=== PATIENT | female | born 1985 | race Caucasian/White ===

== ENCOUNTER → 2018-09-16 13:50 | Outpatient (CLI) | payer OTHER, SELFPAY ==
[2018-09-16 14:08] LABS: Add Manual Diff / Slide Review NO; Basophils Absolute Auto 0 /uL (0-100); Basophils Percent Auto 0.6 % (0-2); Eosinophils Absolute Auto 100 /uL (0-450); Eosinophils Percent Auto 1.1 % (2-4); Hematocrit 35.5 % (36-46); Hemoglobin 12.6 g/dL (12.0-16.0); Lymphocytes Absolute Auto 2700 /uL (1100-4500); Lymphocytes Percent Auto 33.4 % (25-40); Mean Corpuscular HGB Conc 35.4 % (30-36); Mean Corpuscular Hemoglobin 32.3 PG (26-34); Mean Corpuscular Volume 91.1 fL (80-100); Monocytes Absolute Auto 300 /uL (0-900); Monocytes Percent Auto 3.5 % (3-14); Neutrophils Absolute Auto 5000 /uL (1500-7000); Neutrophils Percent Auto 61.4 % (50-75); Platelet Count 405 X10^3/uL (150-400); White Blood Cell Count 8.1 X10^3/uL (4.5-11.0)
[2018-09-16 14:35] LABS: Alanine Aminotransferase 16 IU/L (9-52); Albumin 4.6 g/dL (3.5-5.0); Albumin Globulin Ratio 1.6 (1.0-2.8); Alkaline Phosphatase 55 U/L (38-126); Aspartate Aminotransferase 19 IU/L (14-36); BUN Creatinine Ratio 12.9 (6-22); Bilirubin Total 0.8 mg/dL (0.2-1.3); Blood Urea Nitrogen 9 mg/dL (7-17); Calcium 9.6 mg/dL (8.4-10.2); Carbon Dioxide 24 mmol/L (22-32); Chloride 105 mmol/L (98-107); Cholesterol 215 mg/dL (140-199); Estimated Glomerular Filt Rate > 60.0 mL/min (>60); Globulin 2.8 g/dL (1.7-4.1); Glucose 146 mg/dL (70-100); HDL Cholesterol 62 mg/dL (40-60); HEMOLYSIS < 15 (0-50); LDL Cholesterol Calculated 115 mg/dL (<100); Potassium 3.9 mmol/L (3.4-5.1); Sodium 139 mmol/L (137-145); Total Protein 7.4 g/dL (6.3-8.2); Triglycerides 192 mg/dL (35-150)
[2018-09-16 14:52] LABS: Free T4, Direct Thyroxine 0.85 ng/dL (0.78-2.19)
[2018-09-16 15:05] LABS: Thyroid Stimulating Hormone 0.59 uIU/mL (0.47-4.68)
== END ==
PROVIDERS: Family Provider Nurse Practitioner Gerontology; PCP Nurse Practitioner Gerontology; Visit Provider Psychiatry & Neurology Psychiatry
DX: F33.2 Major depressive disorder, recurrent severe without psychotic features (principal)
CPT/HCPCS: 36415; 80053; 80061; 84439; 84443; 85025

== ENCOUNTER 2018-11-06 14:18 | Emergency (ER) | payer OTHER, SELFPAY ==
[2018-11-06 14:35] VITALS: BP 120/78; PULSE 69; RESP 15; TEMP 37.1; O2SAT 99; BMI 27.6
[2018-11-06 15:42] LABS: INR 1.1 (0.9-1.3); Prothrombin Time 12.2 SECONDS (10.1-12.7)
[2018-11-06 15:45] LABS: PTT Partial Thromboplastin Tim 31 SECONDS (26.4-36.2)
[2018-11-06 15:46] LABS: Alanine Aminotransferase 13 IU/L (9-52); Albumin 4.7 g/dL (3.5-5.0); Albumin Globulin Ratio 1.6 (1.0-2.8); Alkaline Phosphatase 50 U/L (38-126); Aspartate Aminotransferase 22 IU/L (14-36); BUN Creatinine Ratio 14.3 (6-22); Bilirubin Total 0.6 mg/dL (0.2-1.3); Blood Urea Nitrogen 10 mg/dL (7-17); Calcium 9.3 mg/dL (8.4-10.2); Carbon Dioxide 23 mmol/L (22-32); Chloride 105 mmol/L (98-107); Estimated Glomerular Filt Rate > 60.0 mL/min (>60); Glucose 82 mg/dL (70-100); HEMOLYSIS < 15 (0-50); Lipase 78 U/L (23-300); Potassium 3.8 mmol/L (3.4-5.1); Sodium 140 mmol/L (137-145); Total Protein 7.7 g/dL (6.3-8.2)
[2018-11-06 15:51] LABS: Add Manual Diff / Slide Review NO; Basophils Absolute Auto 100 /uL (0-100); Basophils Percent Auto 0.9 % (0-2); Eosinophils Absolute Auto 100 /uL (0-450); Eosinophils Percent Auto 1.2 % (2-4); Hematocrit 35.4 % (36-46); Hemoglobin 12.7 g/dL (12.0-16.0); Lymphocytes Absolute Auto 2800 /uL (1100-4500); Mean Corpuscular HGB Conc 35.9 % (30-36); Mean Corpuscular Hemoglobin 31.6 PG (26-34); Mean Corpuscular Volume 87.9 fL (80-100); Monocytes Absolute Auto 400 /uL (0-900); Monocytes Percent Auto 5.5 % (3-14); Neutrophils Absolute Auto 4500 /uL (1500-7000); Neutrophils Percent Auto 57.4 % (50-75); Platelet Count 395 X10^3/uL (150-400); Red Blood Cell Count 4.03 X10^6/uL (4.0-5.2); Red Cell Distribution Width 12.6 % (11.6-14.8); White Blood Cell Count 7.9 X10^3/uL (4.5-11.0)
[2018-11-06 17:04] LABS: Bacteria Urine None Seen
[2018-11-06 17:06] LABS: Appearance Urine UA CLEAR; Bilirubin Urine UA NEGATIVE (NEGATIVE); Color Urine UA YELLOW; Glucose Urine UA NEGATIVE (Negative); Ketones Urine UA NEGATIVE (NEGATIVE); Leukocyte Esterase Urine UA NEGATIVE (NEGATIVE); Nitrite Urine UA NEGATIVE (Negative); Occult Blood Urine UA 3+ (Negative); Protein Urine UA NEGATIVE (Negative); Urobilinogen Urine UA 0.2 E.U./dL (0.2)
[2018-11-06 17:13] LABS: Culture Indicated Urine Cult Not Indicated; RBC Urine 1-5/HPF (0-5/HPF); Squamous Epithelial Cell Urine 0-1 /HPF (0-5/HPF); WBC Urine 0-1/HPF (0-5/HPF)
[2018-11-06] MEDS: ONDANSETRON 4 MG/2 ML INJ IV (17:41)
[2018-11-06] MEDS: HYDROMORPHONE 0.5 MG INJ IV (17:42)
[2018-11-06] MEDS: SODIUM CHLORIDE 0.9% 1,000 ML 1000 ML IV (17:42)
[2018-11-06] MEDS: PANTOPRAZOLE 40 MG VIAL IV (17:42)
--- NOTE | 2018-11-06 18:03 | ED_ITS ---
HPI - Abdominal Pain General Chief Complaint: Abdominal Pain Stated Complaint: Abd pain Time Seen by Provider: 11/06/18 16:53 Source: patient Mode of arrival: Ambulatory Limitations: no limitations History of Present Illness HPI narrative: 33-year-old female nonsmoker with history seasonal allergies and ovarian cyst presents with her and child in the chief complaint of ongoing nausea, vomiting, diarrhea, episodic crampy abdominal pain. She has been having symptoms off and on for multiple weeks. She was seen at an outside facility on Wednesday and had a very thorough workup including labs and a CT scan. She was diagnosed with mesenteric adenitis. Patient was discharged home with return precautions. Patient denies fever. And states that her symptoms are no worse but are no better and she is hoping for a 2nd opinion. She denies any exposure to ill persons, international travel, bad food, or the use of recent antibiotics. MD complaint: abdominal pain Onset (ago): week(s) Pain Consistency: intermittent Location: diffuse and RLQ Severity: moderate Quality: cramping Radiation: none Relieving factors: rest Exacerbating factors: movement Associated symptoms: nausea and diarrhea Related Data Home Medications Medication Instructions Recorded Confirmed cetirizine PO QDAY #0 03/15/17 10/11/18 etonogestrel [Nexplanon] 68 mg INTRADERMAL #0 03/15/17 10/11/18 fluticasone propionate 50 1 spray NASAL DAILY 06/28/18 10/11/18 mcg/actuation nasal spray,suspension spironolactone 50 mg tablet 50 mg PO DAILY 06/28/18 10/11/18 Previous Rx's Medication Instructions Recorded bupropion HCl 300 mg 24 hr tablet, 300 mg PO QAM #90 tab 06/28/18 extended release hydroxyzine HCl 25 mg tablet See Rx Instructions PO BEDTIME PRN 06/28/18 #180 tab lisdexamfetamine 50 mg capsule 50 mg PO DAILY #90 cap 06/28/18 vilazodone 20 mg tablet 20 mg PO DAILY #90 tab 06/28/18 Allergies Allergy/AdvReac Type Severity Reaction Status Date / Time Penicillins AdvReac Severe Hives and Unverified 09/16/18 13:04 Blisters Review of Systems Constitutional Constitutional: Denies chills, Denies fatigue, Denies fever(s), Denies frequent falls, Denies lethargy and Denies weakness Eyes Eyes: Denies change in vision, Denies eye discharge, Denies irritation and Denies loss of vision ENT Ears, Nose, Mouth, and Throat: Denies change in voice, Denies dizziness, Denies neck pain, Denies sore throat and Denies throat swelling Cardiovascular Cardiovascular: Denies chest pain, Denies irregular heart rhythm, Denies lightheadedness, Denies palpitations, Denies dyspnea, Denies dyspnea on exertion and Denies orthopnea Respiratory Respiratory: Denies cough, Denies dyspnea, Denies dyspnea on exertion and Denies wheezing Gastrointestinal Gastrointestinal: Reports abdominal pain, Denies change in bowel habits, Reports diarrhea, Reports nausea and Denies vomiting Genitourinary Genitourinary: Denies hematuria, Denies flank pain, Denies urinary incontinence and Denies urinary urgency Musculoskeletal Musculoskeletal: Denies back pain, Denies muscle weakness, Denies neck pain, Denies numbness and Denies tingling Integumentary/Breasts Skin/Breast: Denies pruritus, Denies erythema, Denies rash and Denies wounds Neurologic Neurologic: Denies behavioral changes, Denies confusion, Denies dizziness, Denies frequent falls, Denies loss of vision, Denies numbness, Denies tingling and Denies weakness Psychiatric Psychiatric: Denies anxiety, Denies behavioral changes, Denies confusion, Denies depression, Denies homicidal ideation and Denies suicidal ideation Endocrine Endocrine: Denies fatigue, Denies flushing and Denies palpitations Hematologic/Lymphatic Hematologic/Lymphatic: Denies easy bruising Allergic/Immunologic Allergic/Immunologic: Denies urticaria, Denies throat swelling and Denies wheezing PFSH Social History Smoking Status: Never smoker Social History Smoking Status: Never smoker Exam Narrative Exam Narrative: GENERAL: [33] year old patient appears stated age. Well- nourished, well-developed patient, in mild distress. HEAD: Atraumatic. Normocephalic. EYES: Pupils equal round and reactive. Extraocular motions intact. No scleral icterus. No injection or drainage. ENT: Nose without bleeding, purulent drainage. Throat without erythema, tonsillar hypertrophy or exudate. Airway patent. NECK: Trachea midline. Non tender CARDIOVASCULAR: Regular rate and rhythm without murmurs, gallops, or rubs. RESPIRATORY: Clear to auscultation. Breath sounds equal bilaterally. No wheezes, rales, or rhonchi. GASTROINTESTINAL: Abdomen soft, mild tenderness in the right lower quadrant nondistended. EXTREMITIES: No edema or joint tenderness. BACK: Nontender without deformity or crepitance. No flank tenderness. NEURO: AOx3. SKIN: No rash or erythema of visible areas Initial Vital Signs Initial Vital Signs: Vital Signs Temperature 98.7 F 11/06/18 14:35 Pulse Rate 69 11/06/18 14:35 Respiratory Rate 15 11/06/18 14:35 Blood Pressure 120/78 11/06/18 14:35 Pulse Oximetry 99 11/06/18 14:35 Course Orders Ordered: ED Orders 11/06/18 15:10 Complete Blood Count AUTO DIFF Stat Comprehensive Metabolic Panel Stat Lipase Stat Partial Thromboplastin Time Stat Prothrombin Time INR Stat 11/06/18 16:48 Urinalysis and Microscopic Stat EKG-12 Lead Stat 11/06/18 17:21 GI Panel (Film Array) Stat Sodium Chloride (Normal Saline 0.9%) 1,000 mls @ 1,000 mls/hr IV BOLUS ONE Stop: 11/06/18 18:19 Last Admin: 11/06/18 17:42 Dose: 1,000 mls/hr Documented by: XANDER Ondansetron HCl (Zofran) 4 mg IV Q4HR PRN PRN Reason: Nausea And Vomiting Last Admin: 11/06/18 17:41 Dose: 4 mg Documented by: XANDER Discontinued Medications Hydromorphone HCl (Dilaudid) 0.5 mg IV NOW ONE Stop: 11/06/18 17:21 Last Admin: 11/06/18 17:42 Dose: 0.5 mg Documented by: JASMINT Pantoprazole Sodium (Protonix) 40 mg IV NOW ONE Stop: 11/06/18 17:21 Last Admin: 11/06/18 17:42 Dose: 40 mg Documented by: JASMINT Vital Signs Vital signs: Vital Signs - 8 hr 11/06/18 14:35 Temperature 98.7 F Pulse Rate 69 Respiratory Rate 15 Blood Pressure 120/78 Pulse Oximetry 99 MDM - Abdominal Pain Lab Data Result diagrams: 11/06/18 15:10 11/06/18 15:10 Labs: Lab Results 11/06/18 11/06/1819 Range/Units 15:10 15:10 15:10 WBC 7.9 (4.5-11.0) X10^3/uL RBC 4.03 (4.0-5.2) X10^6/uL Hgb 12.7 (12.0-16.0) g/dL Hct 35.4 L (36-46) % MCV 87.9 (80-100) fL MCH 31.6 (26-34) PG MCHC 35.9 (30-36) % RDW 12.6 (11.6-14.8) % Plt Count 395 (150-400) X10^3/uL Neut % (Auto) 57.4 (50-75) % Lymph % (Auto) 35.0 (25-40) % [place] % (Auto) 5.5 (3-14) % Eos % (Auto) 1.2 L (2-4) % Baso % (Auto) 0.9 (0-2) % Neut # (Auto) 4500 (9234-2653) /uL Lymph # (Auto) 2800 (8021-1574) /uL [place] # (Auto) 400 (0-900) /uL Eos # (Auto) 100 (0-450) /uL Baso # (Auto) 100 (0-100) /uL PT 12.2 (10.1-12.7) SECONDS INR 1.1 (0.9-1.3) APTT 31 (26.4-36.2) SECONDS Sodium 140 (137-145) mmol/L Potassium 3.8 (3.4-5.1) mmol/L Chloride 105 (98-107) mmol/L Carbon Dioxide 23 (22-32) mmol/L BUN 10 (7-17) mg/dL Creatinine 0.70 (0.52-1.04) mg/dL Estimated GFR > 60.0 (>60) mL/min BUN/Creatinine Ratio 14.3 (6-22) Glucose 82 (70-100) mg/dL Calcium 9.3 (8.4-10.2) mg/dL Total Bilirubin 0.6 (0.2-1.3) mg/dL AST 22 (14-36) IU/L ALT 13 (9-52) IU/L Alkaline Phosphatase 50 (38-126) U/L Total Protein 7.7 (6.3-8.2) g/dL Albumin 4.7 (3.5-5.0) g/dL Globulin 3.0 (1.7-4.1) g/dL Albumin/Globulin Ratio 1.6 (1.0-2.8) Lipase 78 (23-300) U/L Urine Color Urine Appearance Urine pH (4.5-8.0) Ur Specific [place] (1.000-1.035) Urine Protein (Negative) Urine Glucose (UA) (Negative) g/dL Urine Ketones (NEGATIVE) Urine Occult Blood (Negative) Urine Nitrate (Negative) Urine Bilirubin (NEGATIVE) Urine Urobilinogen (0.2) E.U./dL Ur Leukocyte Esterase (NEGATIVE) Urine RBC (0-5/HPF) Urine WBC (0-5/HPF) Ur Squamous Epith Cells (0-5/HPF) Urine Bacteria (None) Ur Culture Indicated? 11/06/18 Range/Units 16:48 WBC (4.5-11.0) X10^3/uL RBC (4.0-5.2) X10^6/uL Hgb (12.0-16.0) g/dL Hct (36-46) % MCV (80-100) fL MCH (26-34) PG MCHC (30-36) % RDW (11.6-14.8) % Plt Count (150-400) X10^3/uL Neut % (Auto) (50-75) % Lymph % (Auto) (25-40) % [place] % (Auto) (3-14) % Eos % (Auto) (2-4) % Baso % (Auto) (0-2) % Neut # (Auto) (9458-8526) /uL Lymph # (Auto) (5460-1294) /uL [place] # (Auto) (0-900) /uL Eos # (Auto) (0-450) /uL Baso # (Auto) (0-100) /uL PT (10.1-12.7) SECONDS INR (0.9-1.3) APTT (26.4-36.2) SECONDS Sodium (137-145) mmol/L Potassium (3.4-5.1) mmol/L Chloride (98-107) mmol/L Carbon Dioxide (22-32) mmol/L BUN (7-17) mg/dL Creatinine (0.52-1.04) mg/dL Estimated GFR (>60) mL/min BUN/Creatinine Ratio (6-22) Glucose (70-100) mg/dL Calcium (8.4-10.2) mg/dL Total Bilirubin (0.2-1.3) mg/dL AST (14-36) IU/L ALT (9-52) IU/L Alkaline Phosphatase (38-126) U/L Total Protein (6.3-8.2) g/dL Albumin (3.5-5.0) g/dL Globulin (1.7-4.1) g/dL Albumin/Globulin Ratio (1.0-2.8) Lipase (23-300) U/L Urine Color Yellow Urine Appearance Clear Urine pH 5.0 (4.5-8.0) Ur Specific [place] 1.010 (1.000-1.035) Urine Protein Negative (Negative) Urine Glucose (UA) Negative (Negative) g/dL Urine Ketones Negative (NEGATIVE) Urine Occult Blood 3+ H (Negative) Urine Nitrate Negative (Negative) Urine Bilirubin Negative (NEGATIVE) Urine Urobilinogen 0.2 (0.2) E.U./dL Ur Leukocyte Esterase Negative (NEGATIVE) Urine RBC 1-5/hpf (0-5/HPF) Urine WBC 0-1/hpf (0-5/HPF) Ur Squamous Epith Cells 0-1 /hpf (0-5/HPF) Urine Bacteria None seen (None) Ur Culture Indicated? Cult not indicated Point of care testing: Point of Care Testing Test Results Negative Urine Dip Bedside Urine Glucose Negative Bedside Urine Bilirubin - Negative Bedside Urine Ketone - Negative Urine Specific [place] 1.015 Bedside Urine Occult Blood +++ Bedside Urine pH 5.5 Bedside Urine Protein - Negative Bedside Urine Urobilinogen - Negative Bedside Urine Nitrite - Negative Bedside Urine Leukocytes - Negative Esterase MDM Narrative Medical decision making narrative: Multiple etiologies for patient's symptoms considered including: [Year old bowel syndrome versus viral gastroenteritis versus atypical appendicitis but thought less likely given lack of findings on CT and a negative white count versus other] Patient's symptoms improved or duration of stay with above-stated therapies. Findings and discharge diagnosis discussed with patient/family followed by verbalization of understanding Return precautions discussed with patient/family whom verbalize understanding. Discharge Plan Departure Patient Disposition: Home Clinical Impression: Diarrhea, Abdominal pain Instructions: Diarrhea Activity Restrictions/Additional Instructions: 1. Drink plenty of fluids with frequent small sips. 2. For the next 24 hours a clear liquid diet is advised. After that please employ a brat diet which would include bananas, rice, apples, toast. 3. Please take medications as directed. 4. Please follow-up with your doctor in the next 1-2 days. Call the office for an appointment. 5. Please return to the emergency Department for any worsening or persistent symptoms, such as increasing pain or fever. Prescriptions: No Action fluticasone propionate [Flonase Allergy Relief] 50 mcg/actuation sp ray,suspension 1 spray NASAL DAILY RF: 0 spironolactone 50 mg tablet 50 mg PO DAILY RF: 0 bupropion HCl 300 mg tablet extended release 24 hr 300 mg PO QAM Qty: 90 RF: 3 hydroxyzine HCl 25 mg tablet See Rx Instructions PO BEDTIME PRN (Reason: insomnia) Qty: 180 RF: 3 Viibryd 20 mg tablet 20 mg PO DAILY Qty: 90 RF: 3 Vyvanse 50 mg capsule 50 mg PO DAILY Qty: 90 RF: 0 cetirizine 5 mg tablet PO QDAY Qty: 0 RF: 0 etonogestrel [Nexplanon] 68 MG implant 68 mg Intradermal Qty: 0 RF: 0 Referrals: Martha Maret ARNP [Primary Care Provider] -
[2018-11-06] MEDS: ONDANSETRON 4 MG ODT PREPACK 1 BOTTLE MISC (18:44)
[2018-11-06] MEDS: HYDROCODONE/ACET 5/325 PREPACK 1 BOTTLE MISC (18:44)
[2018-11-06 18:50] VITALS: BP 131/76; PULSE 58; RESP 16; O2SAT 100
== END 2018-11-06 18:51 | disposition home or self-care (01) ==
PROVIDERS: Emergency Provider Emergency Medicine; PCP Nurse Practitioner Gerontology
DX: R19.7 Diarrhea, unspecified (principal); R10.9 Unspecified abdominal pain
CPT/HCPCS: 36415; 80053; 81001; 81003; 81025; 83690; 85025; 85610; 85730; 93005; 93010; 96361; 96374; 96375; 99283; 99284; C9113; J1170; J2405

== ENCOUNTER → 2018-12-14 14:38 | Outpatient (CLI) | payer OTHER, SELFPAY ==
[2018-12-14 15:42] LABS: Add Manual Diff / Slide Review NO; Basophils Absolute Auto 100 /uL (0-100); Basophils Percent Auto 0.7 % (0-2); Eosinophils Absolute Auto 100 /uL (0-450); Eosinophils Percent Auto 1.3 % (2-4); Hematocrit 36.3 % (36-46); Lymphocytes Absolute Auto 3200 /uL (1100-4500); Lymphocytes Percent Auto 39.4 % (25-40); Mean Corpuscular HGB Conc 35.8 % (30-36); Mean Corpuscular Hemoglobin 31.6 PG (26-34); Mean Corpuscular Volume 88.4 fL (80-100); Monocytes Absolute Auto 300 /uL (0-900); Monocytes Percent Auto 4.1 % (3-14); Neutrophils Absolute Auto 4500 /uL (1500-7000); Neutrophils Percent Auto 54.5 % (50-75); Platelet Count 408 X10^3/uL (150-400); Red Blood Cell Count 4.11 X10^6/uL (4.0-5.2); White Blood Cell Count 8.2 X10^3/uL (4.5-11.0)
== END ==
PROVIDERS: PCP Physician Assistant; Visit Provider Physician Assistant
DX: R10.9 Unspecified abdominal pain (principal); R59.0 Localized enlarged lymph nodes
CPT/HCPCS: 36415; 85025

== ENCOUNTER → 2018-12-27 10:38 | Outpatient (CLI) | payer OTHER, SELFPAY ==
[2018-12-27 12:38] LABS: Follicle Stimulating Hormone 5.44 mIU/mL; Prolactin 11.2 ng/mL (3.0-18.6)
== END ==
PROVIDERS: PCP Physician Assistant; Visit Provider Obstetrics & Gynecology
DX: N93.9 Abnormal uterine and vaginal bleeding, unspecified (principal)
CPT/HCPCS: 36415; 83001; 84146

== ENCOUNTER → 2019-02-20 10:19 | Outpatient (CLI) | payer OTHER, SELFPAY ==
[2019-02-20 12:48] LABS: Add Manual Diff / Slide Review NO; Basophils Absolute Auto 100 /uL (0-100); Basophils Percent Auto 0.4 % (0-2); Eosinophils Absolute Auto 100 /uL (0-450); Eosinophils Percent Auto 0.9 % (2-4); Hematocrit 35.5 % (36-46); Hemoglobin 12.9 g/dL (12.0-16.0); Lymphocytes Absolute Auto 2600 /uL (1100-4500); Lymphocytes Percent Auto 22.4 % (25-40); Mean Corpuscular HGB Conc 36.4 % (30-36); Mean Corpuscular Hemoglobin 32.8 PG (26-34); Mean Corpuscular Volume 90.1 fL (80-100); Monocytes Absolute Auto 500 /uL (0-900); Monocytes Percent Auto 4.1 % (3-14); Neutrophils Absolute Auto 8300 /uL (1500-7000); Neutrophils Percent Auto 72.2 % (50-75); Platelet Count 408 X10^3/uL (150-400); Red Blood Cell Count 3.94 X10^6/uL (4.0-5.2); White Blood Cell Count 11.5 X10^3/uL (4.5-11.0)
[2019-02-20 13:03] LABS: Alanine Aminotransferase 14 IU/L (<35); Albumin 5.1 g/dL (3.5-5.0); Albumin Globulin Ratio 1.6 (1.0-2.8); Alkaline Phosphatase 69 U/L (38-126); Aspartate Aminotransferase 24 IU/L (14-36); BUN Creatinine Ratio 11.3 (6-22); Bilirubin Total 1.1 mg/dL (0.2-1.3); Blood Urea Nitrogen 9 mg/dL (7-17); Calcium 9.7 mg/dL (8.4-10.2); Carbon Dioxide 25 mmol/L (22-32); Chloride 101 mmol/L (98-107); Cholesterol 268 mg/dL (140-199); Estimated Glomerular Filt Rate > 60.0 mL/min (>60); Globulin 3.1 g/dL (1.7-4.1); Glucose 92 mg/dL (70-100); HDL Cholesterol 50 mg/dL (40-60); HEMOLYSIS < 15 (0-50); LDL Cholesterol Calculated 183 mg/dL (<100); Potassium 3.7 mmol/L (3.4-5.1); Sodium 138 mmol/L (137-145); Total Protein 8.2 g/dL (6.3-8.2); Triglycerides 175 mg/dL (35-150)
[2019-02-20 13:48] LABS: Vitamin B12 641 pg/mL (239-931)
[2019-02-20 14:07] LABS: Thyroid Stimulating Hormone 0.79 uIU/mL (0.47-4.68)
== END ==
PROVIDERS: PCP Physician Assistant; Visit Provider Physician Assistant
DX: Z13.220 Encounter for screening for lipoid disorders (principal); L65.9 Nonscarring hair loss, unspecified; N92.6 Irregular menstruation, unspecified; R53.83 Other fatigue; Z13.6 Encounter for screening for cardiovascular disorders; Z82.49 Family history of ischemic heart disease and other diseases of the circulatory system
CPT/HCPCS: 36415; 80053; 80061; 82607; 84443; 85025

== ENCOUNTER 2019-02-23 13:42 | Day surgery (SDC) | payer OTHER, SELFPAY ==
[2019-02-23 14:22] VITALS: BP 119/82; PULSE 73; RESP 16; TEMP 36.7; O2SAT 99; BMI 26.4
[2019-02-23] MEDS: SODIUM CHLORIDE 0.9% 1,000 ML 200 ML IV (14:36)
--- NOTE | 2019-02-23 15:34 | PM.HP.1 ---
History of Present Illness History of Present Illness Date Patient Seen: 02/23/19 Time Patient Seen: 15:34 Chief complaint: 57411 COLONOSCOPY Narrative: Patient presents for colorectal screening. The have prior colonoscopy at the age of 13 recently had a change in the bowel habits having nausea as well as new onset diarrhea.. No personal or family history of colon cancer. No vomiting, unexplained weight loss, melena, hematochezia, or bright red blood per rectum. Patient History Medical History Acne (Inactive ~1999) Asthma (Chronic ~1997) Depression (Chronic ~1999) Irregular menstrual cycle (Chronic ~2017) Ovarian cyst (Inactive ~2014) Painful menstrual periods (Chronic ~2018) Surgical History Anesthesia (Resolved) History of knee surgery (Resolved) History of removal of cyst (Resolved) History of tonsillectomy (Resolved ~2016) History of umbilical hernia repair (Resolved ~2015) Tailbone injury (Resolved ~2015) Family & Social History Family History Father Diabetes mellitus Hypertension Stroke Mother Diabetes mellitus Hypertension Hyperlipidemia Brother Mental health problem Brother Hypertension Mental health problem Grandmother Diabetes mellitus History of heart disease Hypertension Social History: household members spouse Tobacco & Substance use: Smoking Status Never smoker alcohol intake current Substance Use Type does not use Meds Home Medications and Allergies Home Medications Medication Instructions Recorded Confirmed Type bupropion HCl 300 mg 24 hr tablet, 300 mg PO QAM #90 tab 06/28/18 02/23/19 Rx extended release fluticasone propionate 50 1 spray NASAL DAILY 06/28/18 02/23/19 History mcg/actuation nasal spray,suspension spironolactone 50 mg tablet 50 mg PO DAILY 06/28/18 02/23/19 History fexofenadine 180 mg tablet 180 mg PO DAILY 12/06/18 02/23/19 History hydroxyzine HCl 25 mg tablet See Rx Instructions PO BEDTIME PRN 12/06/18 02/23/19 History ranitidine HCl 150 mg tablet 150 mg PO DAILY PRN 12/06/18 02/23/19 History albuterol sulfate 90 mcg/actuation 2 puff INHALATION Q6H PRN #18 gram 02/20/19 02/23/19 Rx aerosol inhaler vilazodone 20 mg tablet 40 mg PO DAILY tab 02/20/19 02/23/19 History cholecalciferol (vitamin D3) 50,000 unit PO QWEEK 02/21/19 02/23/19 History 50,000 unit capsule rosuvastatin 10 mg tablet 10 mg PO BEDTIME #45 tab 02/21/19 02/23/19 Rx Allergies Allergy/AdvReac Type Severity Reaction Status Date / Time Penicillins AdvReac Severe Hives and Unverified 02/21/19 10:08 Blisters Review of Systems Review of Systems Narrative: A 10 point review of systems is negative except as noted in the HPI Exam Vital Signs (past 8 hours): - 02/23/19 14:22 Temperature 98.1 F Pulse Rate 73 Respiratory Rate 16 Blood Pressure 119/82 Pulse Oximetry 99 Oxygen Delivery Method Room Air Narrative Exam Narrative: General-no acute distress, well nourished HEENT-moist mucous membranes, no scleral icterus Neck-supple, no lymphadenopathy Chest- non labored respirations, clear to auscultation bilaterally Cardiac-regular rate no peripheral edema Abdomen-soft reducible umbilical hernia Extremities-warm, well perfused Neurological-alert and oriented, no focal deficits Assessment & Plan Assessment & Plan narrative: The patient requires colorectal screening and colonoscopy is recommended. Technical details were discussed. Risks, benefits, alternatives explained. Risks including but not limited to myocardial infarction, aspiration, bleeding, pain, missed lesion, incomplete examination, need for further radiographic studies, colonic perforation, and need for major abdominal surgery were discussed. All questions were answered to their satisfaction, and they are in agreement with this plan. Incidentally patient has a umbilical hernia which she would like repaired and we will directly schedule her for this operation.
--- NOTE | 2019-02-23 16:13 | PM.OP.ENDO ---
Operative Date/Time/Diagnoses Date of procedure: 02/23/19 Time of procedure: 16:14 Pre-op diagnosis: Diarrhea abdominal pain Post-op diagnosis: same Procedure & Clinicians Study performed: Diagnostic colonoscopy Same procedure as scheduled: Yes Indications: Is a 34-year-old female with the change in bowel habits and abdominal pain presents for diagnostic colonoscopy. Surgeon: Castillo Gonzalez Procedure Notes SCOAP/Timeout: Performed Procedure in detail: Patient placed in left lateral decubitus position. Time out was performed. Procedural sedation was administered with Versed and Fentanyl. A rectal exam demonstrated no external hemorrhoids no internal masses. Colonoscopy scope was placed into the rectum and advanced through the colon to the cecum. The ileocecal valve was identified. The scope was then slowly withdrawn examining colon thoroughly in all directions. The colonoscopy was notable for the following 1. Grade 1 internal hemorrhoids 2. Quality of prep excellent 3. No polyps or masses within the colon and rectum Scope withdrawal time: 6 Sedation minutes: 30 Findings: internal hemorrhoids Specimen(s): none sent Complications: none Impression: Normal colonoscopy Post-procedure Disposition: same day surgery
[2019-02-23 16:16] VITALS: BP 114/79; PULSE 75; RESP 14; TEMP 36.3; O2SAT 96
[2019-02-23] MEDS: fentaNYL 250 MCG/5 ML INJ IV (16:16)
[2019-02-23] MEDS: MIDAZOLAM 5 MG/5 ML VIAL IV (16:17)
[2019-02-23 16:21] VITALS: BP 102/72; PULSE 71; RESP 13; O2SAT 98
[2019-02-23 16:27] VITALS: BP 118/85; PULSE 69; RESP 12; O2SAT 99
[2019-02-23 16:39] VITALS: BP 119/84; PULSE 72; RESP 16; TEMP 36.1; O2SAT 100
== END 2019-02-23 16:42 | disposition home or self-care (01) ==
PROVIDERS: PCP Physician Assistant; Visit Provider Surgery
PROC: 0DJD8ZZ Inspection of Lower Intestinal Tract, Via Natural or Artificial Opening Endoscopic (ICD-10-PCS; CPT 45378; principal; 2019-02-23 15:30)
DX: R10.9 Unspecified abdominal pain (principal); R19.7 Diarrhea, unspecified; R11.0 Nausea; J45.909 Unspecified asthma, uncomplicated; N92.1 Excessive and frequent menstruation with irregular cycle; K64.0 First degree hemorrhoids
CPT/HCPCS: 45378; 99152; 99153; J2250; J3010

== ENCOUNTER 2019-02-24 18:44 | Emergency (ER) | payer OTHER, SELFPAY ==
[2019-02-24 18:49] VITALS: BP 119/82; PULSE 72; RESP 16; TEMP 37.3; O2SAT 99; BMI 26.4
--- NOTE | 2019-02-24 19:08 | DI.RAD.S_ITS ---
PROCEDURE: XR ACUTE ABDOMEN SERIES INDICATIONS: abdominal pain and small rect bld, s/p colonoscopy yesterday TECHNIQUE: One view chest and two views of the abdomen were acquired. COMPARISON: [facility], , SACRUM-COCCYX MIN 2 VIEWS, 09/18/2014, 9:12. FINDINGS: Surgical changes and devices: None. Chest: Lungs are clear. Heart size is normal. No pleural effusions. No pneumoperitoneum. Abdomen: Bowel gas pattern is normal. No suspicious calcifications. Visualized solid organ contours appear normal. Bones: A sclerotic lesion at the right acetabulum likely represents a small bone island, no prior comparisons are available to determine the acuity of this finding. IMPRESSION: No acute cardiopulmonary findings. No acute intra-abdominal findings. 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 3 month followup recommended to ensure stability. Dictated by: Maria De Jesus Martin M.D. on 02/24/2019 at 20:04 Approved by: Maria De Jesus Martin M.D. on 02/24/2019 at 20:05
[2019-02-24 19:35] LABS: Add Manual Diff / Slide Review NO; Basophils Absolute Auto 100 /uL (0-100); Basophils Percent Auto 0.8 % (0-2); Eosinophils Absolute Auto 100 /uL (0-450); Eosinophils Percent Auto 1.3 % (2-4); Hematocrit 31.5 % (36-46); Hemoglobin 11.3 g/dL (12.0-16.0); Lymphocytes Absolute Auto 4000 /uL (1100-4500); Lymphocytes Percent Auto 47.4 % (25-40); Mean Corpuscular HGB Conc 35.9 % (30-36); Mean Corpuscular Hemoglobin 32.5 PG (26-34); Mean Corpuscular Volume 90.4 fL (80-100); Monocytes Absolute Auto 400 /uL (0-900); Monocytes Percent Auto 4.8 % (3-14); Neutrophils Absolute Auto 3900 /uL (1500-7000); Neutrophils Percent Auto 45.7 % (50-75); Platelet Count 379 X10^3/uL (150-400); Red Blood Cell Count 3.48 X10^6/uL (4.0-5.2); Red Cell Distribution Width 13.2 % (11.6-14.8); White Blood Cell Count 8.5 X10^3/uL (4.5-11.0)
[2019-02-24] MEDS: ACETAMINOPHEN 325 MG TABLET 975 MG PO (19:45)
[2019-02-24] MEDS: ONDANSETRON 4 MG ODT SL (19:45)
--- NOTE | 2019-02-24 19:59 | ED_ITS ---
HPI - Abdominal Pain <LADY Ann - Last Filed: 02/24/19 21:22> General Chief Complaint: Abdominal Pain Stated Complaint: RECTAL BLEEDING ABD PAIN Time Seen by Provider: 02/24/19 18:57 Source: patient Mode of arrival: Family Vehicle Limitations: no limitations History of Present Illness HPI narrative: This is a 34-year-old female, nonsmoker, who presents to ED with abdominal discomfort and rectal bleeding. Patient states she had a diagnostic colonoscopy done by Dr. Gonzalez yesterday for frequent abdominal discomfort and bowel changes and discharged to home. She denies getting polyps removed during this procedure. Patient reports she was told there was 1 internal hemorrhoid found. Patient reports her abdominal discomfort is in the left lower quadrant and periumbilical region and rates as 3 to 4/10 pain. Patient reports this morning she noticed small blood spot in her underwear when she woke up. She also had menstrual period and thought this was from vaginal bleeding. However, she had used tampon and when she sat on a toilet she saw table spoon size of blood into the toilet and when she wiped with a tissue and this was at 5:30 p.m.. She tried to call nurse hotline and she was suggested to going to ED for an evaluation. Patient denies fever, chills, vomiting but mild nausea today. Patient has history of several ovarian cysts removal surgery, umbilical hernia repair in the past. Related Data Home Medications Medication Instructions Recorded Confirmed fluticasone propionate 50 1 spray NASAL DAILY 06/28/18 02/23/19 mcg/actuation nasal spray,suspension spironolactone 50 mg tablet 50 mg PO DAILY 06/28/18 02/23/19 fexofenadine 180 mg tablet 180 mg PO DAILY 12/06/18 02/23/19 hydroxyzine HCl 25 mg tablet See Rx Instructions PO BEDTIME PRN 12/06/18 02/23/19 ranitidine HCl 150 mg tablet 150 mg PO DAILY PRN 12/06/18 02/23/19 vilazodone 20 mg tablet 40 mg PO DAILY tab 02/20/19 02/23/19 cholecalciferol (vitamin D3) 50,000 unit PO QWEEK 02/21/19 02/23/19 50,000 unit capsule Previous Rx's Medication Instructions Recorded bupropion HCl 300 mg 24 hr tablet, 300 mg PO QAM #90 tab 06/28/18 extended release albuterol sulfate 90 mcg/actuation 2 puff INHALATION Q6H PRN #18 gram 02/20/19 aerosol inhaler rosuvastatin 10 mg tablet 10 mg PO BEDTIME #45 tab 02/21/19 Allergies Allergy/AdvReac Type Severity Reaction Status Date / Time Penicillins AdvReac Severe Hives and Verified 02/24/19 18:54 Blisters Review of Systems <LADY Ann - Last Filed: 02/24/19 21:22> Review of Systems Narrative: General: Denies fever, (+) chills, fatigue, malaise, sweats. HEENT: Denies sinus pain, ear pain, sore throat, difficulty swallowing, dizziness. Respiratory: Denies dyspnea, cough, wheezing, hemoptysis, sputum. Cardiovascular: Denies chest pain, palpitations, orthopnea, edema. Gastrointestinal: See HPI : Denies dysuria, frequency, incontinence, hematuria, urinary retention. Musculoskeletal: Denies weakness, joint pain or bony pain. Skin: Denies rash, skin lesions, or other. Neurologic: Denies weakness, headache, numbness, change in speech, confusion, seizures, incoordination. Psychiatric: No concerning psychosocial issues. 12-point review of systems is negative except for those stated above. Patient History <LADY Ann - Last Filed: 02/24/19 21:22> Medical History Acne (Inactive ~1999) Asthma (Chronic ~1997) Depression (Chronic ~1999) Fracture of coccyx with delayed healing (Acute) Irregular menstrual cycle (Chronic ~2017) Ovarian cyst (Inactive ~2014) Painful menstrual periods (Chronic ~2018) Surgical History Anesthesia (Resolved) H/O colonoscopy (Acute) History of knee surgery (Resolved) History of removal of cyst (Resolved) History of tonsillectomy (Resolved ~2016) History of umbilical hernia repair (Resolved ~2015) Tailbone injury (Resolved ~2015) Family History Father Diabetes mellitus Hypertension Stroke Mother Diabetes mellitus Hypertension Hyperlipidemia Brother Mental health problem Brother Hypertension Mental health problem Grandmother Diabetes mellitus History of heart disease Hypertension Social History household members: spouse Smoking Status: Never smoker second hand exposure: No alcohol intake: current substance use type: marijuana Smoking Status: Never smoker alcohol intake frequency: 0-2 drinks per day Substance Use Type: marijuana Exam <LADY Ann - Last Filed: 02/24/19 21:22> Narrative Exam Narrative: GEN: Alert, oriented x 3, well appearing and nourished, and in no acute distress. Head: Normal cephalic, atraumatic. No scalp or temporal tenderness, palpable mass or rash. EYES: Pupils are equal, round, and reactive to light and accommodation. Extraocular muscles are intact bilaterally. There is no subconjunctival hemorr shyla, exudate and sclera non-icteric. ENT: Bilateral auditory canals and tympanic membranes clear. Hearing grossly intact. Nose without bleeding, purulent discharge or deviation. Facial sinuses nontender to palpate. Mucous membrane moist, no mucosal lesion. Throat without erythema, tonsillar hypertrophy or exudate. Uvula in midline, airway patent. Neck: Trachea in midline. No JVD, non-tender without lymphadenopathy. No masses or thyroid megaly. Supple, non-tender and no meningeal signs. CARDIAC: Normal regular rate and rhythm without murmurs, gallops, or rubs. No chest wall tenderness. No peripheral edema, cyanosis or pallor. Capillary refill is less than 2 seconds. RESPIRATORY: Lungs are clear to auscultate bilaterally. No cough, wheezes, rales, or rhonchi. No stridor, respiratory distress, increase work of breathing, or accessary muscle used. ABD: Abdomen soft, mild tender in left lower quadrant and periumbilical region without distension. No guarding or rebound tenderness to palpate. Bowel sounds are normal in all 4 quadrants. There is no palpable masses or organomegaly. Rectum appears to be normal in appearance without fissure or bleeding. EXT: Full painless ROM of all extremities with no loss of sensation, strength, effusion or edema. SKIN: Warm, dry, normal color for patient. No erythema, lesions or rash over visible areas. BACK: Nontender without deformity or crepitance. No flank tenderness. NEUROLOGICAL: Alert and oriented to place, time and person. Sensation and motor function intact bilaterally. No facial droops, dysphasia. PSYCHIATRIC: Good judgement and reason, without hallucinations, abnormal affect or abnormal behaviors during the examination. Patient is not suicidal. Initial Vital Signs Initial Vital Signs: Vital Signs Temperature 99.1 F 02/24/19 18:49 Pulse Rate 72 02/24/19 18:49 Respiratory Rate 16 02/24/19 18:49 Blood Pressure 119/82 02/24/19 18:49 Pulse Oximetry 99 02/24/19 18:49 <Donovan Forrester DO - Last Filed: 02/24/19 21:45> Initial Vital Signs Initial Vital Signs: Vital Signs Temperature 99.1 F 02/24/19 18:49 Pulse Rate 72 02/24/19 18:49 Respiratory Rate 16 02/24/19 18:49 Blood Pressure 119/82 02/24/19 18:49 Pulse Oximetry 99 02/24/19 18:49 Scores <LADY Ann - Last Filed: 02/24/19 21:22> GCS Ino coma scale eye opening: Spontaneous [place] coma scale verbal response: Orientated [place] coma scale motor response: Obey commands [place] coma scale total score: 15 Course <LADY Ann - Last Filed: 02/24/19 21:22> Orders Ordered: ED Orders 02/24/19 19:08 XR acute abdomen series Stat 02/24/19 19:22 Complete Blood Count AUTO DIFF Stat Discontinued Medications Acetaminophen (Tylenol) 975 mg PO NOW ONE Stop: 02/24/19 19:09 Last Admin: 02/24/19 19:45 Dose: 975 mg Documented by: KITTYARRINGWHITNEY Ondansetron HCl (Zofran Odt) 4 mg SL NOW ONE Stop: 02/24/19 19:09 Last Admin: 02/24/19 19:45 Dose: 4 mg Documented by: KITTYARRINGWHITNEY Ondansetron HCl (Zofran Odt Prepack) 1 bottle MISC SEEINSTR ONE Stop: 02/24/19 21:00 Last Admin: 02/24/19 21:14 Dose: 1 bottle Documented by: KITTYARRINGTO Consultations Consultation #1: Dr. Whyte consulted with the findings and advised to have start clear liquid for tomorrow and full liquids for the following day with no significant drop in H&H, no fever, no leukocytosis. Plan to follow up with PCP in next couple of days for re-evaluation on blood count and abdominal pain. Time: 20:48 Vital Signs Vital signs: Vital Signs - 8 hr 02/24/19 18:49 02/24/19 20:05 02/24/19 21:17 Temperature 99.1 F Pulse Rate 72 79 72 Respiratory Rate 16 14 16 Blood Pressure 119/82 Blood Pressure [Left Arm] 119/78 Pulse Oximetry 99 100 97 <Donovan Forrester DO - Last Filed: 02/24/19 21:45> Orders Ordered: ED Orders 02/24/19 19:08 XR acute abdomen series Stat 02/24/19 19:22 Complete Blood Count AUTO DIFF Stat Discontinued Medications Acetaminophen (Tylenol) 975 mg PO NOW ONE Stop: 02/24/19 19:09 Last Admin: 02/24/19 19:45 Dose: 975 mg Documented by: KITTYARRINGWHITNEY Ondansetron HCl (Zofran Odt) 4 mg SL NOW ONE Stop: 02/24/19 19:09 Last Admin: 02/24/19 19:45 Dose: 4 mg Documented by: KITTYARRINGWHITNEY Ondansetron HCl (Zofran Odt Prepack) 1 bottle MISC SEEINSTR ONE Stop: 02/24/19 21:00 Last Admin: 02/24/19 21:14 Dose: 1 bottle Documented by: HEENA Vital Signs Vital signs: Vital Signs - 8 hr 02/24/19 18:49 02/24/19 20:05 02/24/19 21:17 Temperature 99.1 F Pulse Rate 72 79 72 Respiratory Rate 16 14 16 Blood Pressure 119/82 Blood Pressure [Left Arm] 119/78 Pulse Oximetry 99 100 97 MDM - Abdominal Pain <LADY Ann - Last Filed: 02/24/19 21:22> Differential Diagnosis Differential diagnosis: Likely abdominal pain and other (Bowel perforation, GI bleed, rectal laceration/abrasion) Medical Records Attestation: I reviewed the patient's medical records. Lab Data Attestation: I reviewed the patient's lab results. Result diagrams: 02/24/19 19:22 Labs: Lab Results 01/10/20 Range/Units 19:22 WBC 8.5 (4.5-11.0) X10^3/uL RBC 3.48 L (4.0-5.2) X10^6/uL Hgb 11.3 L (12.0-16.0) g/dL Hct 31.5 L (36-46) % MCV 90.4 (80-100) fL MCH 32.5 (26-34) PG MCHC 35.9 (30-36) % RDW 13.2 (11.6-14.8) % Plt Count 379 (150-400) X10^3/uL Neut % (Auto) 45.7 L (50-75) % Lymph % (Auto) 47.4 H (25-40) % [place] % (Auto) 4.8 (3-14) % Eos % (Auto) 1.3 L (2-4) % Baso % (Auto) 0.8 (0-2) % Neut # (Auto) 3900 (6358-0669) /uL Lymph # (Auto) 4000 (1343-7977) /uL [place] # (Auto) 400 (0-900) /uL Eos # (Auto) 100 (0-450) /uL Baso # (Auto) 100 (0-100) /uL Imaging Data XR-AAS: Radiologist's Impression: [address] [address] XRay Report Signed Patient: Martha Argueta MMR#: [id number] : 1985Acct:[id number] Age/Sex: 34 / FDate of Service: 02/24/19 Loc: ED Accession Number: [id number] Procedure: XR acute abdomen series Ordering Provider: Sam Oliveros PROCEDURE: XR ACUTE ABDOMEN SERIES INDICATIONS: abdominal pain and small rect bld, s/p colonoscopy yesterday TECHNIQUE: One view chest and two views of the abdomen were acquired. COMPARISON: [facility], CR, SACRUM-COCCYX MIN 2 VIEWS, 09/18/2014, 9:12. FINDINGS: Surgical changes and devices: None. Chest: Lungs are clear. Heart size is normal. No pleural effusions. No pneumoperitoneum. Abdomen: Bowel gas pattern is normal. No suspicious calcifications. Visualized solid organ contours appear normal. Bones: A sclerotic lesion at the right acetabulum likely represents a small bone island, no prior comparisons are available to determine the acuity of this finding. IMPRESSION: No acute cardiopulmonary findings. No acute intra-abdominal findings. 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 3 month followup recommended to ensure sta bility. Dictated by: Maria De Jesus Martin M.D. on 02/24/2019 at 20:04 Approved by: Maria De Jesus Martin M.D. on 02/24/2019 at 20:05 [facility] Narrative Medical decision making narrative: This is a 34-year-old female who presents to ED with mild left lower quadrant and periumbilical region discomfort with blood spots in her underwear that she noticed when she woke up this morning. Last time she noticed a tbsp full of rectal bleed into the toilet at 5:30 p.m. today. Patient had diagnostic colonoscopy yesterday at [facility] without any polyps removed. Patient states found 1 internal hemorrhoids during the procedure. Patient denies constitutional symptoms. Abdominal physical exam was benign. AAS xray test does not show free air or fluid suggesting perforation or obstruction. Incidental finding of a sclerotic lesion at the right acetabulum likely a small bone island and patient advised to follow-up in 3 months with x-ray test to compare. H and H is 11.3 and 31.5 which is mildly decreased from previous history ranging from 12-13/35-36 during last 5 months. Vital signs stable without tachycardia. Patient attempted to use restroom while in ED without additional rectal bleeding but was able to pass gas. Dr. Whyte has been consulted and advised to have patient on clear liquid tomorrow and full liquid for the following day. Patient advised to ambulate more to help with passing gas. Patient advised to follow up with PCP in 2-3 days for re- evaluation on blood count and abdominal pain. Return precautions were discussed with the patient and patient was discharged to home with mila Ventura. Patient agrees treatment plan and verbalized understanding. <Donovan Forrester, DO - Last Filed: 02/24/19 21:45> Lab Data Labs: Lab Results 02/24/19 Range/Units 19:22 WBC 8.5 (4.5-11.0) X10^3/uL RBC 3.48 L (4.0-5.2) X10^6/uL Hgb 11.3 L (12.0-16.0) g/dL Hct 31.5 L (36-46) % MCV 90.4 (80-100) fL MCH 32.5 (26-34) PG MCHC 35.9 (30-36) % RDW 13.2 (11.6-14.8) % Plt Count 379 (150-400) X10^3/uL Neut % (Auto) 45.7 L (50-75) % Lymph % (Auto) 47.4 H (25-40) % [place] % (Auto) 4.8 (3-14) % Eos % (Auto) 1.3 L (2-4) % Baso % (Auto) 0.8 (0-2) % Neut # (Auto) 3900 (3567-3490) /uL Lymph # (Auto) 4000 (3630-2206) /uL [place] # (Auto) 400 (0-900) /uL Eos # (Auto) 100 (0-450) /uL Baso # (Auto) 100 (0-100) /uL Discharge Plan Departure Patient Disposition: Home Clinical Impression: Colonoscopy causing post-procedural bleeding Discharge Date/Time: 02/24/19 21:18 Instructions: DI for Rectal Bleeding Activity Restrictions/Additional Instructions: You have been diagnosed with [small amount of rectal bleed status post colonoscopy. Blood count today was mildly decreased from previous time. Abdomen and chest x-ray test does not show acute findings such as free fluid or air. However, incidental sclerotic lesions at the right acetabulum which likely represents a small bone island. Please follow-up in 3 months with repeat x-ray test for stability since today we do not have previous x-ray to compare]. What to do: *Take your medications as directed. You can take Tylenol for discomfort. Ambulate to help with passing gas. Please use Zofran as needed for nausea. Tomorrow stay with clear liquid diet, full liquid diet on the following day. *Follow up with your primary care provider in 2-3 days, call for an appointment. Let them know you were seen in the ED and that we asked you to be seen in follow up for recheck on abdominal pain and CBC count. *Return to ED if you have any new, worsening, or concerning symptoms, such as [severe pain, fever, unable to tolerate fluids, increasing rectal bleeding, chest pain, breathing difficulty, dizziness or feeling like faint or any acute concerns]. Prescriptions: No Action fluticasone propionate [Flonase Allergy Relief] 50 mcg/actuation spray,suspension 1 spray NASAL DAILY RF: 0 spironolactone 50 mg tablet 50 mg PO DAILY RF: 0 bupropion HCl 300 mg tablet extended release 24 hr 300 mg PO QAM Qty: 90 RF: 3 rosuvastatin 10 mg tablet 10 mg PO BEDTIME Qty: 45 RF: 1 hydroxyzine HCl 25 mg tablet See Rx Instructions PO BEDTIME PRN (Reason: Sleep) RF: 0 fexofenadine 180 mg tablet 180 mg PO DAILY RF: 0 ranitidine HCl [Acid Control (ranitidine)] 150 mg tablet 150 mg PO DAILY PRN (Reason: Gastric Reflux) RF: 0 Viibryd 20 mg tablet 40 mg PO DAILY RF: 0 albuterol sulfate 90 mcg/actuation HFA aerosol inhaler 2 puff INHALATION Q6H PRN (Reason: shortness of breath or wheezing) Qty: 18 RF: 3 cholecalciferol (vitamin D3) 50,000 unit capsule 50,000 unit PO QWEEK RF: 0 Referrals: Deidre Meredith PA-C [Primary Care Provider] - <Donovan Forrester, - Last Filed: 02/24/19 21:45> Sign Out Provider Sign Out Attestation: Dr Forrester Co-Sign Statement: I was available for consultation during this patient's emergency department visit. This chart is signed by myself for administrative purposes only. I did not have direct contact with this patient during this visit. They were seen independently by the APC.
[2019-02-24 20:05] VITALS: BP 119/78; PULSE 79; RESP 14; O2SAT 100
[2019-02-24] MEDS: ONDANSETRON 4 MG ODT PREPACK 1 BOTTLE MISC (21:14)
[2019-02-24 21:17] VITALS: PULSE 72; RESP 16; O2SAT 97
== END 2019-02-24 21:18 | disposition home or self-care (01) ==
PROVIDERS: Emergency Provider Nurse Practitioner Family; PCP Physician Assistant
DX: K91.840 Postprocedural hemorrhage of a digestive system organ or structure following a digestive system procedure (principal); R10.32 Left lower quadrant pain
CPT/HCPCS: 36415; 74022; 85025; 99283; 99284

== ENCOUNTER 2019-03-07 11:35 | Day surgery (SDC) | payer OTHER, SELFPAY ==
[2019-03-03 11:28] VITALS: BMI 27.8
[2019-03-07] VITALS (11 sets, daily range): BP systolic 116–133; BP diastolic 74–85; PULSE 75–95; RESP 8–16; TEMP 36.3–36.8; O2SAT 94–100; BMI 27.8
[2019-03-07] MEDS: LACTATED RINGERS 1,000 ML 42 ML IV (12:30)
[2019-03-07] MEDS: CELECOXIB 200 MG CAPSULE 400 MG PO (12:33)
[2019-03-07] MEDS: GABAPENTIN 300 MG CAPSULE PO (12:33)
[2019-03-07] MEDS: ACETAMINOPHEN 325 MG TABLET 975 MG PO (12:33)
[2019-03-07] MEDS: SCOPOLAMINE 1 PATCH TOP (12:34)
--- NOTE | 2019-03-07 13:23 | PM.PREOP ---
Pre-operative Note Interval Note History & Physical reviewed/Exam performed by Physician: Yes Changes to H&P: No
[2019-03-07] MEDS: CLINDAMYCIN 900 MG/50 ML PIGGYBACK 50 MG IV (13:50)
--- NOTE | 2019-03-07 14:06 | SUR.OPER ---
Supine on padded OR bed, head on pillow, arms secured on padded arm boards at <90 degrees abduction, legs uncrossed, safety belt at thigh, tape over blanket over lower legs.
[2019-03-07] MEDS: BUPIVACAINE 0.25% (PF) VIAL 30 ML INJ (14:15)
--- NOTE | 2019-03-07 15:07 | PM.OP.1 ---
Operative Date/Time/Diagnoses Date of procedure: 03/07/19 Time of procedure: 15:08 Pre-op diagnosis: recurrent umbilical hernia Post-op diagnosis: same Procedure & Clinicians Procedure: open umbilical hernia repair with mesh Same procedure as scheduled: Yes Indications: 34F with a recurrent symptomatic umbilical hernia Surgeon: Castillo Gonzalez Click Yes if Unassisted: Yes Anesthesia Type: General Operative Notes Findings: 2 x <1cm adjacent midline fascial defects at the umbilicus Estimated Blood Loss (mL): 10 Procedure in detail: Patient was brought to the operating room placed supine on the table. Bilateral lower extremity compression devices were applied. General anesthesia was inducedand they were intubated with an endotracheal tube. They received 900 mg Clindamycin prior to skin incision. They were prepped and draped in sterile fashion. A time-out was performed ensure the correct patient procedure necessary equipment within the operating room. A curvilinear incision was made inferior to the umbilicus through the prior incision. The subcutaneous tissues were divided. The umbilical hernia was identified and was dissected off the umbilicus and circumferentially. The umbilical hernia sac was opened carefully using Suhail and contained viable omentum. The hernia sac was then closed with 3 0 Vicryl suture. The sac was reduced into the abdomen and the fascia was cleared from above in order to accommodate the mesh. There was a 2nd umbilical midline fascial defect just superior the recurrent defect. This hernia sac was excised in similar fashion. The fascial edges were then reapproximated with a [id number] 0 PDS suture. A 4 cm Pro Loop polypropylene mesh was inserted over the fascial defect. It was secured to the fascia using 0 Prolene suture in interrupted fashion. The subcutaneous tissues were reapproximated using 3 0 Vicryl skin closed with 4 0 Monocryl upon by the application of Dermabond and Steri-Strips. Sponge instrument count at the end of the operation was correct. Patient tolerated procedure well was extubated and transferred to postoperative care unit in stable condition. Complications: none Post-operative Condition: stable Disposition: same day surgery
[2019-03-07] MEDS: fentaNYL 100 MCG/2 ML INJ IV ×2 (15:08→15:22)
--- NOTE | 2019-03-07 15:17 | SUR.PHASEI ---
Jose Maria HAN. Medicated for patient c/o 10 pain upon arrival.
[2019-03-07] MEDS: OXYCODONE IR 5 MG TABLET PO (15:42)
--- NOTE | 2019-03-07 15:58 | SUR.PHASEI ---
Patient states pain is much more tolerable. Denies nausea. Able to maintain oxygen levels>95% on RA.
== END 2019-03-07 16:45 | disposition home or self-care (01) ==
PROVIDERS: PCP Physician Assistant; Visit Provider Surgery
PROC: (CPT 49585; principal; 2019-03-07 13:30)
DX: K42.9 Umbilical hernia without obstruction or gangrene (principal)
CPT/HCPCS: 49585; C1781; J1100; J1885; J2250; J2405; J2704; J3010

== ENCOUNTER → 2019-04-12 08:44 | Outpatient (CLI) | payer OTHER, SELFPAY ==
[2019-04-12 11:42] LABS: Alanine Aminotransferase 15 IU/L (<35); Albumin 4.8 g/dL (3.5-5.0); Albumin Globulin Ratio 1.6 (1.0-2.8); Alkaline Phosphatase 69 U/L (38-126); Aspartate Aminotransferase 22 IU/L (14-36); BUN Creatinine Ratio 15.7 (6-22); Bilirubin Total 1.3 mg/dL (0.2-1.3); Blood Urea Nitrogen 11 mg/dL (7-17); Calcium 9.8 mg/dL (8.4-10.2); Carbon Dioxide 23 mmol/L (22-32); Chloride 103 mmol/L (98-107); Cholesterol 202 mg/dL (140-199); Estimated Glomerular Filt Rate > 60.0 mL/min (>60); Glucose 89 mg/dL (70-100); HDL Cholesterol 75 mg/dL (40-60); HEMOLYSIS < 15 (0-50); LDL Cholesterol Calculated 98 mg/dL (<100); Potassium 3.8 mmol/L (3.4-5.1); Sodium 139 mmol/L (137-145); Total Protein 7.8 g/dL (6.3-8.2); Triglycerides 144 mg/dL (35-150)
== END ==
PROVIDERS: PCP Physician Assistant; Referring Provider Physician Assistant; Visit Provider Physician Assistant
DX: Z51.81 Encounter for therapeutic drug level monitoring (principal); E78.2 Mixed hyperlipidemia
CPT/HCPCS: 36415; 80053; 80061